=== PATIENT | male | born 1965 | race Caucasian/White ===

== ENCOUNTER 2017-06-20 16:47 | Emergency (ER) | payer BC, OTHER ==
[~2017-06-20] VITALS: Ht 175.3 cm; Wt 114.0 kg
[~2017-06-20 16:47] MED LIST: ALLO100T30 PO; ATEN50TA41 PO; LOSA50TA6 PO; OMEP-110 PO; SIMV40TA3 PO; SIMV5TAB5 PO; SODI650T PO; TERA2CAP3 PO
[2017-06-20 17:52] LABS: ASPARTATE AMINO TRANSFERASE 72 U/L (15-37); BLOOD UREA NITROGEN 24 mg/dL (7-18)
[2017-06-20 18:49] LABS: PATH.CAST-FLAG NOT PRESENT; SPERM-FLAG NOT PRESENT; SRC-FLAG NOT PRESENT; XTAL-FLAG NOT PRESENT; YLC-FLAG NOT PRESENT
[2017-06-20] MEDS ORDERED: OMNIPAQUE 350 MG/ML, 100ML BOTTLE ONE (20:29)
[2017-06-20] MEDS ORDERED: MAGNESIUM CITRATE 300ML ORAL SOL ONE (21:28)
[2017-06-20] MEDS ORDERED: MAGNESIUM CITRATE 300ML ORAL SOL PO ONE (21:30)
[2017-06-20 21:44] VITALS: BP 130/76
== END 2017-06-20 21:47 | disposition home or self-care (01) ==
LOC: ED 21:09
DX: K59.00 Constipation, unspecified (principal); E11.22 Type 2 diabetes mellitus with diabetic chronic kidney disease; I12.9 Hypertensive chronic kidney disease with stage 1 through stage 4 chronic kidney disease, or unspecified chronic kidney disease; N18.9 Chronic kidney disease, unspecified; E78.5 Hyperlipidemia, unspecified; E11.21 Type 2 diabetes mellitus with diabetic nephropathy
CPT/HCPCS: 36415; 74020; 74176; 80053; 81001; 83690; 85025; 87086; 99285; Q9967; 87077